=== PATIENT | male | born 1995 | race Two or more races ===

== ENCOUNTER 2018-01-12 17:38 | Emergency (ER) | payer BC, OTHER ==
[~2018-01-12] VITALS: Ht 167.6 cm; Wt 78.5 kg
[2018-01-12 18:40] LABS: HEMATOCRIT 46.5 % (38.0-50.0); MCH 28.7 PG (29.0-34.0); MCHC 34.4 G/DL (30.0-36.0); MCV 83.5 FL (86-99); PLATELET COUNT 251 K/uL (156-360); RBC DIS.WIDTH-CV 13.3 % (11.8-14.6); RBC DIS.WIDTH-SD 40.7 % (39-53); RED BLOOD COUNT 5.57 M/uL (4.00-5.50); WHITE BLOOD COUNT 11.4 K/uL (4.1-10.2)
[2018-01-12 18:55] LABS: CHLORIDE 105 mEq/L (99-109); SODIUM 140 mEq/L (136-147)
[2018-01-12 18:57] LABS: GLUCOSE 96 mg/dL (70-99)
[2018-01-12 19:01] LABS: CREATININE 0.9 mg/dL (0.6-1.3); GFR ESTIMATE (CALCULATED) > 59 mL/min/ (58.99-99999)
[2018-01-12 19:02] LABS: UREA NITROGEN (BUN) 12 mg/dL (9-23)
[2018-01-12 19:34] LABS: TROP-I INTERPRETATION NEGATIVE; TROPONIN-I 0.02 ng/mL (0.0-0.30)
[2018-01-12 20:09] VITALS: BP 125/77
== END 2018-01-12 20:15 | disposition home or self-care (01) ==
LOC: EME 17:38
DX: R55 Syncope and collapse (principal); F41.9 Anxiety disorder, unspecified; F17.200 Nicotine dependence, unspecified, uncomplicated
CPT/HCPCS: 71046; 80048; 84484; 85027; 93005; 99281; 99284